=== PATIENT | female | born 1965 | race Caucasian/White ===

== ENCOUNTER → 2022-06-10 12:19 | Outpatient (CLI) | payer MEDICARE, SELFPAY | PROVIDERS: Visit Provider Internal Medicine | DX: R55 Syncope and collapse (principal); R07.89 Other chest pain | CPT/HCPCS: 93225 ==

== ENCOUNTER → 2022-06-13 10:21 | Outpatient (CLI) | payer MEDICARE, SELFPAY ==
--- NOTE | 2022-06-13 10:29 | XR_ITS ---
FINAL REPORT CLINICAL HISTORY: dyspnea, COPD FINDINGS: There are underlying emphysematous changes. No acute pulmonary density is present. No significant pleural effusion. There is no pneumothorax. The heart is normal in size. The mediastinum is unremarkable. IMPRESSION: Emphysema without acute process. Reviewed, Interpreted and Dictated by Jeramy Bragg MD Transcribed by Carlos Brown Authenticated and . [facility]
[2022-06-13 11:12] LABS: Basophils # 0.1 K/mm3 (0-0.2); Basophils % 1.5 % (0.1-2.0); Eosinophils # 0.4 K/mm3 (0.0-0.4); Hematocrit 48.8 % (37.0-47.0); Hemoglobin 15.2 g/dL (12.2-16.2); Lymphocytes # 2.1 K/mm3 (0.7-4.5); Lymphocytes % 23.6 % (10-50); Mean Corpuscular HGB Conc 31.2 g/dL (31.8-35.4); Mean Corpuscular Hemoglobin 33.7 pg (27.0-31.2); Mean Platelet Volume 8.4 fl (7.4-10.4); Monocytes # 0.8 K/mm3 (0.1-1.0); Monocytes % 8.7 % (1.7-9.3); Neutrophils # 5.6 K/mm3 (1.8-7.8); Neutrophils % 62.2 % (37.0-80.0); Platelet Count 371 K/mm3 (142-424); Red Blood Count 4.52 M/mm3 (4.20-5.40); Red Cell Distribution Width 12.9 % (11.5-17.5)
[2022-06-13 11:33] LABS: Alanine Aminotransferase 20 U/L (12-78); Albumin Level 4.1 g/dl (3.5-5.0); Alkaline Phosphatase 40 U/L (38-126); Anion Gap 10.4 mEq/L (5-15); Aspartate Amino Transferase 27 U/L (14-36); Bilirubin,Unconjugated 0.2 mg/dL (0.0-1.1); Blood Urea Nitrogen 12 mg/dl (7-17); Calcium 9.6 mg/dl (8.4-10.2); Carbon Dioxide 33 mmol/L (22.0-30.0); Chloride 100 mmol/L (98-107); Chol/HDL Ratio 2.2 (1-3.5); Cholesterol 233 mg/dl (140-200); Estimated Glomerular Filt Rate 74 ml/min (>60); GFR (African American) 89 ML/MIN (>60); Glucose 72 mg/dl (74-100); HDL Cholesterol 106 mg/dl (40-60); Potassium 4.4 mmoL/L (3.5-5.1); Sodium 139 mmol/L (136-145); Total Protein,Serum 6.6 g/dl (6.3-8.2); Triglycerides 93 mg/dl (30-150); VLDL Cholesterol 19 mg/dL (0-40)
[2022-06-13 11:35] LABS: Bilirubin,Total < 0.1 mg/dl (0.2-1.3)
[2022-06-13 11:44] LABS: Direct LDL Cholesterol 94.78 mg/dL (100-129)
[2022-06-13 11:47] LABS: Bilirubin,Indirect 0.1 mg/dL (0.0-0.9)
[2022-06-13 11:49] LABS: Free T4 (Free Thyroxine) 0.91 ng/dl (0.78-2.19)
[2022-06-13 12:03] LABS: Thyroid Stimulating Hormone 1.66 uIU/mL (0.465-4.68)
[2022-06-19 19:09] LABS: 1,25 Dihydroxy Vitamin D 65 pg/mL (.); 1,25-Dihydroxy, Vitamin D-2 16 pg/mL (.); 1,25-Dihydroxy, Vitamin D-3 49 pg/mL (.)
== END ==
PROVIDERS: PCP Family Medicine; Visit Provider Internal Medicine
DX: R06.00 Dyspnea, unspecified (principal); R07.89 Other chest pain; R42 Dizziness and giddiness; R53.83 Other fatigue; R55 Syncope and collapse; R60.0 Localized edema; Z72.0 Tobacco use; I10 Essential (primary) hypertension
CPT/HCPCS: 36415; 71046; 80048; 80061; 80076; 82652; 83735; 84439; 84443; 85025

== ENCOUNTER → 2022-07-22 13:07 | Outpatient (CLI) | payer MEDICAID, SELFPAY ==
--- NOTE | 2022-07-22 13:10 | US_ITS ---
FINAL REPORT CLINICAL HISTORY: claudication with ambulation, current smoker, HTN, hyperlipidemia, hx [place], Bilateral rest pain. FINDINGS: ANKLE-BRACHIAL PRESSURE INDICES Pressure indices are as follows: RIGHT LOWER EXTREMITY: Ankle-brachial pressure index: 1.24 Comments: Normal LEFT LOWER EXTREMITY: Ankle-brachial pressure index: 1.25 Comments: Normal CONCLUSION: No evidence of significant obstructive peripheral vascular disease of the lower extremities Reviewed, Interpreted and Dictated by Jeremiah Gomez MD Transcribed by Dang Ly Authenticated and [facility]
== END ==
PROVIDERS: PCP Family Medicine; Visit Provider Physician Assistant
DX: I70.213 Atherosclerosis of native arteries of extremities with intermittent claudication, bilateral legs (principal)
CPT/HCPCS: 93923

== ENCOUNTER → 2023-03-13 08:30 | Outpatient (CLI) | payer MEDICAID, SELFPAY ==
--- NOTE | 2023-03-13 08:30 | US_ITS ---
PROCEDURE: US TRANSVAGINAL CLINICAL INDICATION: post menopausal bleeding and enlarged uterus COMPARISON: No exams were available for comparison FINDINGS: UTERUS: 7cm x 5cmx 4cm with a combined endometrial thickness of 9.6mm. There is a 1.2 cm cervical nabothian cyst. LEFT OVARY: 2cmxx0.9cm x 1.6 cm. RIGHT OVARY: 11cmx [id number] with a volume of 592.4ml. The right ovary is enlarged by a multi-cystic mass. The purdy between the cysts are thickened. The wall thickness ranges between 5 millimeters and 10 millimeters in thickness. There do not appear to be any excrescences. Both ovaries are seen. There is no fluid in the cul-de-sac. IMPRESSION: 1. The uterus is retroverted and retroflexed and normal in shape and size. 2. The endometrium is thickened and measures 9.6 mm. In some of the other views it measures up to 13mm. There are hyperechoic areas within the endometrium. 3. The right ovary consists of a large multi-cystic mass approximately 11 cm by 10 cm in size. There are thick septations. 4. This could be a large mucinous or serous cystadenoma but cannot rule an ovarian carcinoma. 5. There is no fluid in the cul-de-sac. Dictated by: Ron Rendon MD 03/13/2023 14:04 Ron Rendon MD in [place] 03/13/2023 14:04
== END ==
PROVIDERS: PCP Family Medicine; Visit Provider Nurse Practitioner Obstetrics & Gynecology
DX: N85.2 Hypertrophy of uterus (principal); N95.0 Postmenopausal bleeding
CPT/HCPCS: 76830

== ENCOUNTER → 2023-03-17 09:03 | Outpatient (CLI) | payer MEDICAID, SELFPAY ==
[2023-03-18 09:00] LABS: Cancer Antigen (CA) 125 29.5 U/mL (0.0-38.1)
== END ==
PROVIDERS: PCP Family Medicine; Visit Provider Nurse Practitioner Obstetrics & Gynecology
DX: N95.0 Postmenopausal bleeding (principal)
CPT/HCPCS: 36415; 86316

== ENCOUNTER → 2023-06-03 12:09 | Outpatient (CLI) | payer MEDICAID, SELFPAY ==
--- NOTE | 2023-06-03 12:50 | CA_ITS ---
APPROVED REPORT EXAM: Comprehensive 2D, Doppler, and color-flow Echocardiogram Workplace Trainer And Assessor: YENIFER Johnson, RVS Ht: 5 ft 3 in Wt: 157lbs BSA: 1.74 BP: 122/71 mmHg Indications: Smoker, COPD, Emphysema, CP, Pre-op clearance-hysterectomy Echo Enhancing Agent Comments: Technically limited exam due to lung inpedence artifact throughout with poor acoustics. 2D Dimensions IVSd 0.72 cm F: 0.6-1.0 LVEF (Visual) 45.30 % PWd 0.74 cm F: 0.6 - 1.0 LA Volume 23.60 mL LVDd 4.42 cm F: 3.9 - 5.3 LA Volume Index 13.49 mL/m2 (M/F) 16-34 LVDs 3.43 cm F: 2.2 - 3.5 Aortic Root 2.54 cm F: 2.7 - 3.3 Left Atrium 2.70 cm F: 2.7 - 3.8 LVOT 1.83 cm (M/F) 1.5-2.5 M-Mode Dimensions RVDd 1.56 cm (0.9-2.6) LA Diam 3.16 cm (1.9-4.0) LVDd 4.00 cm (3.5-5.7) Ao Diam 2.67 cm (2.0-3.7) LVDs 2.75 cm (3.5-5.7) IVSd 0.84 cm (0.6-1.1) PWd 0.84 cm (0.6-1.1) EF (Teich) 59.60% EPSs 0.65 cm FS 31.30% EDV (Teich) 70.00 mL TAPSE 2.48 (<1.7) ESV (Teich) 28.30 mL LV Diastology E Decel Time 170.00 (160-240 msec) E/A Ratio 1.20 MED E' 10.40 (< 7 cm/sec) MED A' 9.30 cm/s E'/MED E' Ratio 6.36 (>14) LAT E' 9.90 (<10 cm/sec) LAT A' 8.40 cm/s E/LAT E' Ratio 6.68 (>14) Aortic Valve LVOT Max 120.00 (70-110 cm/s) LVOT VTI 24.59 cm Mitral Valve MV A Velocity 55.00 (40-130 cm/s) E/A Ratio 1.20 MV Decel. Time 170.00 (160-240 ms) Tricuspid Valve TR P. Velocity 232.00 cm/s RAP Estimate 10.00 mmHg RVSP 31.50 mmHg Left Ventricle The left ventricle is normal size. The left ventricular systolic function is normal. The left ventricular ejection fraction is within the normal range. There is normal left ventricular wall thickness. There is normal LV segmental wall motion. The left ventricular diastolic function is normal. LVEF is 55%. Right Ventricle The right ventricle is normal size. The right ventricular systolic function is normal. Atria The left atrium size is normal. The right atrium size is normal. There is no Doppler evidence of interatrial shunt. Aortic Valve The aortic valve opens well. There is no aortic valvular stenosis. No aortic regurgitation is present. Mitral Valve The mitral valve is normal in structure. No evidence of mitral valve stenosis. Trace mitral valve regurgitation. Tricuspid Valve The tricuspid valve leaflets are thin and pliable. Trace tricuspid regurgitation. There is insufficient TR jet to estimate RVSP. Pulmonic Valve The pulmonary valve is normal in structure. Trace pulmonic regurgitation. Great Vessels The aortic root is normal in size. The ascending aorta is normal in size. IVC is normal in size and collapses >50% with inspiration. Pericardium There is no pericardial effusion. Other Information Study Quality: Fair Conclusion Normal biventricular systolic function. No significant valvular stenosis or regurgitation. Electronically signed by : Kenyetta Stubbs MD 06/07/2023 12:30:03
== END ==
PROVIDERS: PCP Family Medicine; Visit Provider Internal Medicine
DX: R06.00 Dyspnea, unspecified (principal); R07.89 Other chest pain; I20.8 Other forms of angina pectoris; R42 Dizziness and giddiness; R60.0 Localized edema; R94.31 Abnormal electrocardiogram [ECG] [EKG]; Z01.810 Encounter for preprocedural cardiovascular examination; Z72.0 Tobacco use
CPT/HCPCS: 93306

== ENCOUNTER 2024-05-26 15:03 | Outpatient (CLI) | payer MEDICAID, SELFPAY | END 2024-05-26 23:59 | disposition home or self-care (01) | LOC: LAB.DROPOF 05-27 10:17 | PROVIDERS: PCP Family Medicine; Visit Provider Family Medicine | DX: R30.0 Dysuria (principal) | CPT/HCPCS: 87086 ==